=== PATIENT | male | born 1985 ===

== ENCOUNTER 2022-08-29 07:20 | Day surgery (SDC) | payer OTHER ==
[~2022-08-29] VITALS: Ht 180.3 cm; Wt 106.6 kg
[~2022-08-29 07:20] MED LIST: AMLODIPINE BESY10 MG PO; GLIPIZIDE ER5 MG PO; HYDROCHLOROT25 MG PO; LEVOTHYROXIN50 MCG PO; LIPITOR20 M1 PO; LOSARTAN POTASS50 MG PO; METFORMIN HCL500 M2 PO
[2022-08-29] MEDS ORDERED: TORADOL PO (09:13)
[2022-08-29 12:16] VITALS: BP 118/77
== END 2022-08-29 12:30 | disposition home or self-care (01) | DRG 352 ==
LOC: ORM 07:20
PROVIDERS: ATTEND Surgery
PROC: 0YU50JZ Supplement Right Inguinal Region with Synthetic Substitute, Open Approach (ICD-10-PCS; principal; 2022-08-29)
DX: K40.30 Unilateral inguinal hernia, with obstruction, without gangrene, not specified as recurrent (principal); N43.3 Hydrocele, unspecified; I10 Essential (primary) hypertension; E11.9 Type 2 diabetes mellitus without complications
CPT/HCPCS: C9290; J0131; J1100